=== PATIENT | female | born 1955 | race Caucasian/White ===

== ENCOUNTER 2018-11-17 09:19 | Day surgery (SDC) | payer MEDICARE, OTHER ==
[~2018-11-17 09:19] MED LIST: Lactated Ringers 1,000 ML IV SCH; Sodium Chloride 0.9% 10 ML Syringe FLUSH PRN
[2018-11-17] MEDS ORDERED: Propofol 200 MG/20 ML SDV ONE ×2 (10:49→11:10)
[2018-11-17] MEDS ORDERED: fentaNYL 100 MCG/2 ML SDV ONE (10:49)
[2018-11-17 11:53] VITALS: BP 102/63
--- NOTE | 2018-11-17 18:45 | OR ---
PREOPERATIVE DIAGNOSIS: Positive FIT test. POSTOPERATIVE DIAGNOSIS: Positive FIT test. PROCEDURE PERFORMED: Colonoscopy with polypectomy. INDICATION: The patient is a 63-year-old female who presents for her first colonoscopy at this time. She had a positive FIT test in the office. PROCEDURE IN DETAIL: This was done in the procedure room. She was placed in left lateral position. First, a rectal exam was done, and was normal. Scope was introduced into the rectum and slowly advanced to the rectum, sigmoid, descending, transverse, and ascending colon until the cecum was reached. Upon reaching the cecum, scope was slowly withdrawn looking at all mucosal surfaces on the way out. No mucosal abnormalities, lesions, or polyps were noted until I reached 30 cm where a small polyp was located, was removed by hot forceps, and sent to pathology. Otherwise, she had moderate sigmoid diverticulitis with sigmoid diverticulosis. The remainder of the exam was normal. FINAL DIAGNOSES: 1. Polyp at 30 cm. 2. Sigmoid diverticulosis. PLAN: We will call the patient with pathology when available. BKD: 11/17/2018 11:36:51 MODL: 11/17/2018 18:38:49 /[id number]
== END 2018-11-17 11:35 | disposition home or self-care (01) ==
LOC: VM.SDS 09:19
PROVIDERS: ATTEND Surgery
DX: K57.33 Diverticulitis of large intestine without perforation or abscess with bleeding (principal); D12.5 Benign neoplasm of sigmoid colon; I10 Essential (primary) hypertension; I71.4 Abdominal aortic aneurysm, without rupture; F41.9 Anxiety disorder, unspecified; F17.210 Nicotine dependence, cigarettes, uncomplicated; D22.9 Melanocytic nevi, unspecified; M54.2 Cervicalgia; S72.112G Displaced fracture of greater trochanter of left femur, subsequent encounter for closed fracture with delayed healing; X58.XXXD Exposure to other specified factors, subsequent encounter; Z88.0 Allergy status to penicillin; Z88.1 Allergy status to other antibiotic agents; Z88.8 Allergy status to other drugs, medicaments and biological substances; Z90.710 Acquired absence of both cervix and uterus; Z90.49 Acquired absence of other specified parts of digestive tract; Z79.899 Other long term (current) drug therapy
CPT/HCPCS: 00811; 45384; J2704; J3010; J7120

== ENCOUNTER 2019-04-16 06:50 | Emergency (ER) | payer MEDICARE, OTHER ==
--- NOTE | 2019-04-16 07:19 | EDM.PDOC ---
ED HPI GENERAL MEDICAL PROBLEM - General Stated Complaint: BACK PAIN Time Seen by Provider: 04/16/19 07:19 - History of Present Illness INITIAL COMMENTS - FREE TEXT/NARRATIVE: Pt presents c/o lower back pain. Pt has been moving furniture the last few days. Today comes in by ambulance with 10/10 pain lower labc, denies any trauma. Onset: Today Location: Reports: Back Quality: Reports: Ache Lower Back Pain Score (Numeric/FACES): 5 - Related Data Allergies Allergy/AdvReac Type Severity Reaction Status Date / Time albuterol Allergy Hypertensio Verified 04/16/19 07:33 n azithromycin [From Zithromax] Allergy Other Verified 04/16/19 07:33 cephalexin monohydrate Allergy Nausea Verified 04/16/19 07:33 [From Keflex] codeine Allergy Nausea and Verified 04/16/19 07:33 Vomiting Penicillins Allergy Swelling Verified 04/16/19 07:33 prednisone Allergy Hypertensio Verified 04/16/19 07:33 n Home Meds: Home Meds ALPRAZolam [Alprazolam] 0.25 mg PO DAILY PRN 02/21/14 [History] Aspirin [Adult Low Dose Aspirin EC] 81 mg PO DAILY 11/14/18 [History] Acetaminophen [Tylenol Extra Strength] 500 mg PO Q6H PRN 11/17/18 [History] Past Medical History Cardiovascular History: Reports: Aneurysm, Hypertension Respiratory History: Gastrointestinal History: Reports: Diverticulosis Other Gastrointestinal History: dyspepsia Other Musculoskeletal History: closed nondisplaced fracture of greater trochanter-left femur with delayed healing. cervicalgia. arthralgia Psychiatric History: Reports: Anxiety Other Psychiatric History: smoker - Past Surgical History GI Surgical History: Reports: Cholecystectomy Female Surgical History: Reports: Hysterectomy, Other (See Below) Other Male Surgeries/Procedures: breast biopsy Social & Family History - Family History Other HEENT Family History: sister with brain aneurysm Other Respiratory Family Hisory: sister with hx of lung CA, and liver CA ED ROS GENERAL - Review of Systems Review Of Systems: See Below Constitutional: Reports: No Symptoms HEENT: Reports: No Symptoms Respiratory: Reports: No Symptoms Cardiovascular: Reports: No Symptoms Endocrine: Reports: No Symptoms GI/Abdominal: Reports: No Symptoms : Reports: No Symptoms Musculoskeletal: Reports: Back Pain Skin: Reports: No Symptoms Neurological: Reports: No Symptoms Psychiatric: Reports: No Symptoms Hematologic/Lymphatic: Reports: No Symptoms Immunologic: Reports: No Symptoms ED EXAM,LOWER BACK PAIN/INJURY - Physical Exam Exam: See Below Exam Limited By: No Limitations General Appearance: Alert, WD/WN, No Apparent Distress Eye Exam: Bilateral Eye: Normal Inspection Ears: Normal External Exam, Normal Canal Nose: Normal Inspection, Normal Mucosa Throat/Mouth: Normal Inspection Head: Atraumatic, Normocephalic Neck: Normal Inspection Respiratory/Chest: No Respiratory Distress, Lungs Clear, Normal Breath Sounds Cardiovascular: Normal Peripheral Pulses, Regular Rate, Rhythm GI/Abdominal: Normal Bowel Sounds, Soft, Non-Tender Back Exam: Normal Inspection, Muscle Spasm, Other (Pain lower back est L2-4, no deformity no swelling noted no skin discoloration ) Extremities: Normal Inspection, Normal Range of Motion Neurological: Alert, Normal Mood/Affect Skin Exam: Warm, Dry, Intact Course - Vital Signs Last Recorded V/S: Last Vital Signs Temp 37.2 C 04/16/19 06:45 Pulse 106 H 04/16/19 06:45 Resp 24 H 04/16/19 06:45 BP 143/88 H 04/16/19 06:45 Pulse Ox 91 L 04/16/19 06:45 - Orders/Labs/Meds Orders: Active Orders 24 hr Category Date Time Status Supplemental O2 [Oxygen Therapy, ED] [RC] ASDIRECTED Care 04/16/19 07:48 Ordered Labs: Laboratory Tests 04/16/19 Range/Units 08:13 Sodium 139 (69-191) mmol/L Potassium 4.0 (1.5-9.9) mmol/L Chloride 101 (54-184) mmol/L Carbon Dioxide 27 (21-32) mmol/L Anion Gap 15.0 (10-20) mmol/L BUN 7 (7-18) mg/dL Creatinine 0.6 (0.55-1.02) mg/dL Est Cr Clr Drug Dosing 74.63 mL/min Estimated GFR (MDRD) > 60 Glucose 109 H (74-106) mg/dL Calcium 8.7 (8.5-10.1) mg/dL Meds: Medications Discontinued Medications Generic Name Dose Route Start Last Admin Trade Name Freq PRN Reason Stop Dose Admin Cyclobenzaprine HCl 10 mg 04/16/19 08:49 04/16/19 08:59 Flexeril PO 04/16/19 08:50 10 mg ONETIME ONE Administration Diazepam 3 mg 04/16/19 08:00 04/16/19 07:48 Valium IV 04/16/19 08:01 3 mg ONETIME ONE Administration Departure - Departure Time of Disposition: 09:17 Disposition: Home, Self-Care 01 Condition: Good Clinical Impression: Back muscle spasm - Discharge Information Instructions: Muscle Cramps and Spasms, [id number] Referrals: Kristy Wilson DO [Primary Care Provider] - Additional Instructions: Take cyclobenzaprine three times a day as needed for muscle spasms. !st line Take tramadol every 4 hours as needed for breakthrough pain. - My Orders Last 24 Hours: My Active Orders 04/16/19 07:48 Supplemental O2 [Oxygen Therapy, ED] [RC] ASDIRECTED - Assessment/Plan Last 24 Hours: My Active Orders 04/16/19 07:48 Supplemental O2 [Oxygen Therapy, ED] [RC] ASDIRECTED
[2019-04-16 07:49] VITALS: BP 143/88; PULSE 106
--- NOTE | 2019-04-16 08:33 | CR ---
[id number] RAD/RAD Lumbar Spine 2-3V EXAM: AP AND LATERAL LUMBAR SPINE. INDICATION: Lower back pain. COMPARISON: No previous similar exam is available for comparison. FINDINGS: No fracture or subluxation is seen. There is preservation of height of disc spaces and vertebrae. Mild degenerative changes of the lumbar spine including multilevel facet arthropathy and endplate osteophytosis. The pedicles are intact. There is an abdominal aortic aneurysm measuring up to 5.5 cm. IMPRESSION: 1. NO ACUTE FRACTURE OR SUBLUXATION. 2. MULTILEVEL DEGENERATIVE CHANGES OF THE LUMBAR SPINE. 3. ABDOMINAL AORTIC ANEURYSM MEASURING UP TO 5.5 CM. DEDICATED CTA OF THE ABDOMEN AND PELVIS IS RECOMMENDED FOR FURTHER EVALUATION. George Dixon DO 04/16/19 0830 Thank you for allowing us to participate in the care of your patient.
[2019-04-16 08:34] LABS: CHLORIDE,CL 101 mmol/L (54-184); SODIUM,NA 139 mmol/L (69-191)
[2019-04-16] MEDS ORDERED: Cyclobenzaprine 10 MG Tab PO ONE (08:49)
== END 2019-04-16 09:55 | disposition home or self-care (01) ==
LOC: VM.ED 06:50
DX: M62.830 Muscle spasm of back (principal); I10 Essential (primary) hypertension; F41.9 Anxiety disorder, unspecified; Z79.82 Long term (current) use of aspirin; Z79.899 Other long term (current) drug therapy; Z88.1 Allergy status to other antibiotic agents; Z88.0 Allergy status to penicillin; Z88.5 Allergy status to narcotic agent; Z88.8 Allergy status to other drugs, medicaments and biological substances
CPT/HCPCS: 36415; 72100; 80048; 96374; 99284; A9270; J3360; 99283-GF

== ENCOUNTER 2020-09-17 10:10 | Emergency (ER) | payer MEDICARE, OTHER ==
[2020-09-17 10:30] VITALS: BP 124/94; PULSE 69
--- NOTE | 2020-09-17 10:42 | EDM.PDOC ---
ED HPI GENERAL MEDICAL PROBLEM - General Chief Complaint: General Stated Complaint: malaise/nausea Time Seen by Provider: 09/17/20 10:15 Source of Information: Reports: Patient History Limitations: Reports: No Limitations - History of Present Illness INITIAL COMMENTS - FREE TEXT/NARRATIVE: Dana is a 65 year old female who presents to the ER today with complaints of generalized malaise, body aches and "hot flashes". Has had intermittent nausea without vomiting. States awoke and was drinking coffee when symptoms started. Did have covid vaccine yesterday. No chest pain or shortness of breath. No fevers. Denies any abdominal pain. Legs are achy. Does have mild headache. Has not yet taken any meds to help with symptoms. Onset: Today, Sudden Duration: Hour(s):, Waxing/Waning Location: Reports: Head, Generalized Quality: Reports: Ache Severity: Mild Associated Symptoms: Reports: Headaches, Malaise, Nausea/Vomiting, Weakness. Denies: Confusion, Chest Pain, Cough, Fever/Chills, Loss of Appetite, Shortness of Breath Generalized Pain Score (Numeric/FACES): 5 - Related Data Allergies Allergy/AdvReac Type Severity Reaction Status Date / Time albuterol Allergy Hypertensio Verified 09/17/20 10:24 n azithromycin [From Zithromax] Allergy Other Verified 09/17/20 10:24 cephalexin monohydrate Allergy Nausea Verified 09/17/20 10:24 [From Keflex] codeine Allergy Nausea and Verified 09/17/20 10:24 Vomiting Penicillins Allergy Swelling Verified 09/17/20 10:24 prednisone Allergy Hypertensio Verified 09/17/20 10:24 n Home Meds: Home Meds Aspirin [Adult Low Dose Aspirin EC] 81 mg PO DAILY 11/14/18 [History] Acetaminophen [Tylenol Extra Strength] 500 mg PO Q6H PRN 11/17/18 [History] lisinopriL [Lisinopril] 10 mg PO DAILY 09/17/20 [History] Past Medical History Cardiovascular History: Reports: Aneurysm, Hypertension Respiratory History: Gastrointestinal History: Reports: Diverticulosis Other Gastrointestinal History: dyspepsia Other Musculoskeletal History: closed nondisplaced fracture of greater trochanter-left femur with delayed healing. cervicalgia. arthralgia Psychiatric History: Reports: Anxiety Other Psychiatric History: smoker - Past Surgical History GI Surgical History: Reports: Cholecystectomy Female Surgical History: Reports: Hysterectomy, Other (See Below) Other Female Surgeries/Procedures: breast biopsies Musculoskeletal Surgical History: Reports: Other (See Below) Other Musculoskeletal Surgeries/Procedures:: arthroscopic surgeries to shoulders Social & Family History - Family History Other HEENT Family History: sister with brain aneurysm Other Respiratory Family Hisory: sister with hx of lung CA, and liver CA - Tobacco Use Tobacco Use Status *Q: Current Every Day Tobacco User Years of Tobacco use: 40 Packs/Tins Daily: 1.5 - Alcohol Use Days Per Week of Alcohol Use: 2 Number of Drinks Per Day: 2 Total Drinks Per Week: 4 - Recreational Drug Use Recreational Drug Use: No ED ROS GENERAL - Review of Systems Review Of Systems: See Below Constitutional: Reports: Malaise, Weakness, Fatigue. Denies: Fever, Chills, Diaphoresis, Decreased Appetite HEENT: Reports: Throat Pain. Denies: Ear Pain, Rhinitis, Sinus Problem, Vertigo Respiratory: Denies: Shortness of Breath, Cough Cardiovascular: Denies: Chest Pain, Edema, Lightheadedness Endocrine: Reports: Fatigue GI/Abdominal: Reports: Nausea. Denies: Abdominal Pain, Vomiting : Reports: No Symptoms Musculoskeletal: Reports: Muscle Pain Skin: Reports: No Symptoms Neurological: Reports: Headache ED EXAM, GENERAL - Physical Exam Exam: See Below Exam Limited By: No Limitations General Appearance: Alert, WD/WN, No Apparent Distress Ears: Normal External Exam, Normal TMs Nose: Normal Inspection, Normal Mucosa, No Blood Throat/Mouth: Normal Inspection, Normal Oropharynx Head: Normocephalic Neck: Normal Inspection, Supple, Non-Tender Respiratory/Chest: No Respiratory Distress, Lungs Clear, Normal Breath Sounds Cardiovascular: Regular Rate, Rhythm GI/Abdominal: Normal Bowel Sounds, Soft, Non-Tender Extremities: Normal Inspection, No Pedal Edema Neurological: Alert, Oriented Skin Exam: Warm, Dry Course - Vital Signs Last Recorded V/S: Last Vital Signs Temp 98.2 F 09/17/20 10:15 Pulse 69 09/17/20 10:15 Resp 16 09/17/20 10:15 BP 124/94 H 09/17/20 10:15 Pulse Ox 95 09/17/20 10:15 Departure - Departure Time of Disposition: 10:40 Disposition: Home, Self-Care 01 Condition: Fair Clinical Impression: Vaccine reaction - Discharge Information *PRESCRIPTION DRUG MONITORING PROGRAM REVIEWED*: No *COPY OF PRESCRIPTION DRUG MONITORING REPORT IN PATIENT MEGHANN: No Instructions: COVID-19 Vaccine Information Forms: ED Department Discharge Additional Instructions: 1. Rest 2. Push fluids 3. Tylenol or Benadryl for discomfort 4. Zofran 4 mg every 4-6 hours as needed for nausea 5. Follow up if any persisting concerns. Sepsis Event Note (ED) - Evaluation Sepsis Screening Result: No Definite Risk - Focused Exam Vital Signs: Vital Signs Temp Pulse Resp BP Pulse Ox 09/17/20 10:15 98.2 F 69 16 124/94 H 95
== END 2020-09-17 10:50 | disposition home or self-care (01) ==
LOC: VM.ED 10:10
DX: R53.81 Other malaise (principal); R11.0 Nausea; T88.1XXA Other complications following immunization, not elsewhere classified, initial encounter; I10 Essential (primary) hypertension; F17.200 Nicotine dependence, unspecified, uncomplicated; Z88.1 Allergy status to other antibiotic agents; Z88.5 Allergy status to narcotic agent; Z88.0 Allergy status to penicillin; Z88.8 Allergy status to other drugs, medicaments and biological substances; Z79.82 Long term (current) use of aspirin; Z79.899 Other long term (current) drug therapy
CPT/HCPCS: 99283

== ENCOUNTER 2020-09-20 00:50 | Emergency (ER) | payer MEDICARE, OTHER ==
[2020-09-20 01:08] VITALS: BP 111/83; PULSE 90
[2020-09-20] MEDS: hydrOXYzine HCl 25 MG Tab PO ONE (01:17)
--- NOTE | 2020-09-20 01:18 | EDM.PDOC ---
ED HPI GENERAL MEDICAL PROBLEM - General Chief Complaint: Cardiovascular Problem Stated Complaint: pounding in my chest Time Seen by Provider: 09/20/20 01:06 Source of Information: Reports: Patient - History of Present Illness INITIAL COMMENTS - FREE TEXT/NARRATIVE: Dana is a 65 y/o female who comes to the ER reporting that he heart was pounding as she tried to lay down to sleep tonight. She took a baby ASA when this happened. She had a COVID vaccine on Saturday and since then she has been having "tingling throughout" her body that "starts at her toes and goes up her whole body". She has taken Benadryl, Tylenol, and a nausea medication with little relief. She does admit she is anxious about this and has had a hard time sleeping. She denies any chest pain or SOB. 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, Other (see below) Other Treatments PLODDING MACHINE OPERATOR: Tylenol, zofran, benadryl - Related Data Allergies Allergy/AdvReac Type Severity Reaction Status Date / Time albuterol Allergy Hypertensio Verified 09/17/20 10:24 n azithromycin [From Zithromax] Allergy Other Verified 09/17/20 10:24 cephalexin monohydrate Allergy Nausea Verified 09/17/20 10:24 [From Keflex] codeine Allergy Nausea and Verified 09/17/20 10:24 Vomiting Penicillins Allergy Swelling Verified 09/17/20 10:24 prednisone Allergy Hypertensio Verified 09/17/20 10:24 n Home Meds: Home Meds Aspirin [Adult Low Dose Aspirin EC] 81 mg PO DAILY 11/14/18 [History] Acetaminophen [Tylenol Extra Strength] 500 mg PO Q6H PRN 11/17/18 [History] lisinopriL [Lisinopril] 10 mg PO DAILY 09/17/20 [History] Past Medical History Cardiovascular History: Reports: Aneurysm, Hypertension Respiratory History: Gastrointestinal History: Reports: Diverticulosis Other Gastrointestinal History: dyspepsia Other Musculoskeletal History: closed nondisplaced fracture of greater trochanter-left femur with delayed healing. cervicalgia. arthralgia Psychiatric History: Reports: Anxiety Other Psychiatric History: smoker - Past Surgical History GI Surgical History: Reports: Cholecystectomy Female Surgical History: Reports: Hysterectomy, Other (See Below) Other Female Surgeries/Procedures: breast biopsies Musculoskeletal Surgical History: Reports: Other (See Below) Other Musculoskeletal Surgeries/Procedures:: arthroscopic surgeries to shoulders Social & Family History - Family History Other HEENT Family History: sister with brain aneurysm Other Respiratory Family Hisory: sister with hx of lung CA, and liver CA ED ROS GENERAL - Review of Systems Review Of Systems: See Below Constitutional: Reports: No Symptoms HEENT: Reports: No Symptoms Respiratory: Reports: No Symptoms Cardiovascular: Reports: Palpitations Endocrine: Reports: No Symptoms GI/Abdominal: Reports: No Symptoms : Reports: No Symptoms Musculoskeletal: Reports: No Symptoms Skin: Reports: No Symptoms Neurological: Reports: Tingling Psychiatric: Reports: Anxiety Hematologic/Lymphatic: Reports: No Symptoms Immunologic: Reports: No Symptoms ED EXAM, GENERAL - Physical Exam Exam: See Below General Appearance: Alert, WD/WN, No Apparent Distress (Elderly female.) Eye Exam: Bilateral Eye: PERRL Ears: Hearing Grossly Normal Nose: Normal Inspection, Normal Mucosa Throat/Mouth: Normal Inspection, Normal Lips, Normal Voice Head: Atraumatic, Normocephalic Neck: Normal Inspection Respiratory/Chest: No Respiratory Distress, Lungs Clear, Normal Breath Sounds Cardiovascular: Normal Peripheral Pulses, Regular Rate, Rhythm, No Murmur GI/Abdominal: Normal Bowel Sounds, Soft, Non-Tender (Female) Exam: Deferred Rectal (Female) Exam: Deferred Back Exam: Normal Inspection Extremities: Pedal Edema (1+ bilateral ankle) Neurological: Alert, Oriented, CN II-XII Intact, Normal Cognition Psychiatric: Anxious Skin Exam: Warm, Dry, Intact, Normal Color Lymphatic: No Adenopathy #1 Interpretation EKG Date: 09/20/20 Time: 00:50 Rhythm: NSR Rate (Beats/Min): 82 [place]: Normal P-Wave: Present QRS: Normal ST-T: Normal QT: Normal Course - Vital Signs Text/Narrative:: 0106 The patient was seen by the CORE RESCUER. EKG was done. Her vitals were normal on review. Her exam was negative. She was given Hydroxyzine 100mg po x 1 dose for any reaction and also for anxiety/insomnia. 0145 Patient feeling better and ready to go home to rest. She was given instructions and left the ER in stable condition. Last Recorded V/S: Last Vital Signs Temp 36.2 C 09/20/20 00:50 Pulse 90 09/20/20 00:50 Resp 20 09/20/20 00:50 BP 111/83 09/20/20 00:50 Pulse Ox 93 L 09/20/20 00:50 - Orders/Labs/Meds Meds: Medications Discontinued Medications Generic Name Dose Route Start Last Admin Trade Name Elle PRN Reason Stop Dose Admin Hydroxyzine HCl 100 mg 09/20/20 01:12 09/20/20 01:17 Atarax PO 09/20/20 01:13 100 mg ONETIME ONE Administration Departure - Departure Time of Disposition: 01:41 Disposition: Home, Self-Care 01 Condition: Good Clinical Impression: Anxiety Vaccine reaction Qualifiers: Encounter type: subsequent encounter Qualified Code(s): T50.Z95D - Adverse effect of other vaccines and biological substances, subsequent encounter Instructions: Managing Anxiety, Adult, COVID-19 Vaccine Information Forms: ED Department Discharge Sepsis Event Note (ED) - Evaluation Sepsis Screening Result: No Definite Risk - Focused Exam Vital Signs: Vital Signs Temp Pulse Resp BP Pulse Ox 09/20/20 00:50 36.2 C 90 20 111/83 93 L - Assessment/Plan Assessment:: 1)Anxiety 2)Vaccine Reaction S/P COVID Vaccine Plan: -Continue meds as instructed to use previously including Benadryl and Zofran as needed -Rest as needed -Follow up with your PCP to discuss further symptoms or concerns -Return as needed to the ER
== END 2020-09-20 01:50 | disposition home or self-care (01) ==
LOC: VM.ED 00:50
DX: R20.2 Paresthesia of skin (principal); T88.1XXA Other complications following immunization, not elsewhere classified, initial encounter; F41.9 Anxiety disorder, unspecified; R60.0 Localized edema; I10 Essential (primary) hypertension; F17.200 Nicotine dependence, unspecified, uncomplicated; Z79.82 Long term (current) use of aspirin; Z79.899 Other long term (current) drug therapy; Z88.8 Allergy status to other drugs, medicaments and biological substances; Z88.1 Allergy status to other antibiotic agents; Z88.5 Allergy status to narcotic agent; Z88.0 Allergy status to penicillin
CPT/HCPCS: 93010; 99283-25; 99284; A9270-GY

== ENCOUNTER 2020-11-04 20:46 | Emergency (ER) | payer MEDICARE, OTHER ==
--- NOTE | 2020-11-04 21:19 | EDM.PDOC ---
ED HPI GENERAL MEDICAL PROBLEM - General Stated Complaint: FLUIDS AND SWELLING IN LEGS Time Seen by Provider: 11/04/20 20:59 Source of Information: Reports: Patient - History of Present Illness INITIAL COMMENTS - FREE TEXT/NARRATIVE: Dana is a 65 y/o female who comes to the ER tonight with increased leg swelling. She was seen today at the [facility] and was seen by Lilian Galarza CNP. She did have labs done. She reports that she was kept on her same dose of Lasix 20mg daily and labs were done despite noting that her weight has increased to 114# from 102# over the last few months. She is quite anxious and did take an Alprazolam prior to coming to the ER. She reports only being up and around her house today and she did have her ROSLYN hose on. States she has not been doing any excessive walking. She feels like her legs are swollen up to her thigh region. - Related Data Allergies Allergy/AdvReac Type Severity Reaction Status Date / Time albuterol Allergy Hypertensio Verified 09/17/20 10:24 n azithromycin [From Zithromax] Allergy Other Verified 09/17/20 10:24 cephalexin monohydrate Allergy Nausea Verified 09/17/20 10:24 [From Keflex] codeine Allergy Nausea and Verified 09/17/20 10:24 Vomiting Penicillins Allergy Swelling Verified 09/17/20 10:24 prednisone Allergy Hypertensio Verified 09/17/20 10:24 n Home Meds: Home Meds Aspirin [Adult Low Dose Aspirin EC] 81 mg PO DAILY 11/14/18 [History] Acetaminophen [Tylenol Extra Strength] 500 mg PO Q6H PRN 11/17/18 [History] lisinopriL [Lisinopril] 10 mg PO DAILY 09/17/20 [History] Potassium Chloride 20 meq PO QAM #30 tablet.er 11/04/20 [Rx] Past Medical History Cardiovascular History: Reports: Aneurysm, Hypertension Respiratory History: Gastrointestinal History: Reports: Diverticulosis Other Gastrointestinal History: dyspepsia Other Musculoskeletal History: closed nondisplaced fracture of greater trochanter-left femur with delayed healing. cervicalgia. arthralgia Psychiatric History: Reports: Anxiety Other Psychiatric History: smoker - Past Surgical History GI Surgical History: Reports: Cholecystectomy Female Surgical History: Reports: Hysterectomy, Other (See Below) Other Female Surgeries/Procedures: breast biopsies Musculoskeletal Surgical History: Reports: Other (See Below) Other Musculoskeletal Surgeries/Procedures:: arthroscopic surgeries to shoulders Social & Family History - Family History Other HEENT Family History: sister with brain aneurysm Other Respiratory Family Hisory: sister with hx of lung CA, and liver CA Review of Systems - Review of Systems Review Of Systems: See Below Constitutional: Reports: No Symptoms Eyes: Reports: No Symptoms Ears: Reports: No Symptoms Nose: Reports: No Symptoms Mouth/Throat: Reports: No Symptoms Respiratory: Reports: No Symptoms Cardiovascular: Reports: Edema GI/Abdominal: Reports: No Symptoms Genitourinary: Reports: No Symptoms Musculoskeletal: Reports: No Symptoms Skin: Reports: No Symptoms Neurological: Reports: No Symptoms Psychiatric: Reports: No Symptoms ED EXAM, GENERAL - Physical Exam Exam: See Below Exam Limited By: No Limitations General Appearance: Alert, WD/WN, No Apparent Distress (Elderly female) Eye Exam: Bilateral Eye: PERRL Ears: Hearing Grossly Normal Nose: Normal Inspection, Normal Mucosa Throat/Mouth: Normal Inspection, Normal Teeth, Normal Voice Head: Atraumatic, Normocephalic Neck: Normal Inspection, Supple Respiratory/Chest: No Respiratory Distress, Lungs Clear, Chest Non-Tender Cardiovascular: Normal Peripheral Pulses, Regular Rate, Rhythm GI/Abdominal: Normal Bowel Sounds, Soft, Non-Tender (Female) Exam: Deferred Rectal (Female) Exam: Deferred Extremities: Pedal Edema (bilataeral pedal/ankle edema 2+, mild non-pitting edema noted in thighs) Neurological: Alert, Oriented, CN II-XII Intact, No Motor/Sensory Deficits Psychiatric: Normal Affect, Normal Mood Skin Exam: Warm, Dry, Intact, Normal Color Course - Vital Signs Text/Narrative:: 2058 The patient was seen by the IP LITIGATION PARALEGAL. Labs done. 2149 Lab reviewed. Note [id number]. HHM=Sc=887, K=3.8, GFR=>60. UA SG=1.010. Suspect patient in Heart Failure if she is not already diagnosed. Will have her increase her Lasix to 20mg BID starting in the AM so she is not up all night voiding and then add a dose of Potassium 20 mEq daily. We will have her see her PCP to discuss meds changes and follow up her labs early next week. Patient and her were in agreement to the plan, questions were answered and she was given written discharge instructions and left the ER in stable condition. Last Recorded V/S: Last Vital Signs Temp 36.6 C 11/04/20 20:46 Pulse 79 11/04/20 20:46 Resp 22 H 11/04/20 20:46 BP 138/84 11/04/20 20:46 Pulse Ox 87 L 11/04/20 20:46 - Orders/Labs/Meds Labs: Laboratory Tests 11/04/20 11/04/20 Range/Units 21:10 21:33 Sodium 135 L (136-145) mmol/L Potassium 3.8 (3.5-5.1) mmol/L Chloride 97 L (98-107) mmol/L Carbon Dioxide 31 (21-32) mmol/L Anion Gap 10.8 (5-15) mmol/L BUN 13 (7-18) mg/dL Creatinine 0.6 (0.55-1.02) mg/dL Est Cr Clr Drug Dosing 74.27 mL/min Estimated GFR (MDRD) > 60 Glucose 91 (70-99) mg/dL Calcium 8.2 L (8.5-10.1) mg/dL NT-Pro-B Natriuret Pep 3919 H (<=125) pg/mL Urine Color Yellow (YELLOW) Urine Appearance Slightly cloudy H (CLEAR) Urine pH 6.0 (5.0-8.0) Ur Specific [place] 1.010 Urine Protein Negative (NEGATIVE) mg/dL Urine Glucose (UA) Negative (NEGATIVE) mg/dL Urine Ketones Negative (NEGATIVE) mg/dL Urine Occult Blood Trace-intact H (NEGATIVE) Urine Nitrite Negative (NEGATIVE) Urine Bilirubin Negative (NEGATIVE) Urine Urobilinogen 0.2 (0.2) EU/dL Ur Leukocyte Esterase Trace H (NEGATIVE) Urine RBC 5-10 H (NOT SEEN) /HPF Urine WBC 0-5 (NOT SEEN) /HPF Ur Squamous Epith Cells Occasional H (NOT SEEN) /HPF Amorphous Sediment Occasional Urine Bacteria Rare (NOT SEEN) /HPF Urine Mucus Occasional H (NOT SEEN) /LPF Departure - Departure Time of Disposition: 21:56 Disposition: Home, Self-Care 01 Clinical Impression: Bilateral lower extremity edema - Discharge Information *PRESCRIPTION DRUG MONITORING PROGRAM REVIEWED*: Not Applicable *COPY OF PRESCRIPTION DRUG MONITORING REPORT IN PATIENT MEGHANN: Not Applicable Prescriptions: Potassium Chloride 20 meq PO QAM #30 tablet.er Instructions: Heart Failure, Diagnosis, [id number] Referrals: Kristy Wilson DO [Primary Care Provider] - Additional Instructions: - Sepsis Event Note (ED) - Focused Exam Vital Signs: Vital Signs Temp Pulse Resp BP Pulse Ox 11/04/20 20:46 36.6 C 79 22 H 138/84 87 L - Assessment/Plan Assessment:: 1)Bilateral Lower Extremity Edema Plan: Increased your Lasix (Furosemide) to 20mg 2x a day to help with your increased fluid -Potassium Chloride 20 mEqoral daily when you increase your Lasix #30(Rx) -Please discuss your labs further with your PCP next week and advise her of the changes we made in your meds tonight in the ER, -Weight yourself daily to monitor your fluid. Record this and take it your clinic appt. -Make an appt to see you PCP next week -Return to the ER as needed for any concerns
[2020-11-04 21:29] VITALS: BP 138/84; PULSE 79
[2020-11-04 21:38] LABS: CHLORIDE,CL 97 mmol/L (98-107); SODIUM,NA 135 mmol/L (136-145)
[2020-11-04 21:39] LABS: ANION GAP 10.8 mmol/L (5-15)
== END 2020-11-04 22:08 | disposition home or self-care (01) ==
LOC: VM.ED 20:46
DX: R60.0 Localized edema (principal); I10 Essential (primary) hypertension; F17.200 Nicotine dependence, unspecified, uncomplicated; Z88.8 Allergy status to other drugs, medicaments and biological substances; Z88.1 Allergy status to other antibiotic agents; Z88.5 Allergy status to narcotic agent; Z88.0 Allergy status to penicillin; Z79.899 Other long term (current) drug therapy
CPT/HCPCS: 36415; 80048; 81001; 83880; 99283

== ENCOUNTER 2021-02-05 12:58 | Emergency (ER) | payer MEDICARE, OTHER ==
--- NOTE | 2021-02-05 14:36 | EDM.PDOC ---
ED HPI GENERAL MEDICAL PROBLEM - General Chief Complaint: General Stated Complaint: PAIN IN LEFT LEG TIGHTNESS IN THE CHEST Time Seen by Provider: 02/05/21 14:00 Source of Information: Reports: Patient History Limitations: Reports: No Limitations - History of Present Illness INITIAL COMMENTS - FREE TEXT/NARRATIVE: Patient comes into the emergency department With complaints of right lower leg cramping sensation last night. Patient comes into the emergency department for the above reason due to a recent Covid vaccine and is concerned that she could have a blood clot. She states that she had leg cramping sensation behind the knee last evening and states that she did not want to wait till tomorrow. She denies having any increased pain and discomfort today. She is able to ambulate and CMS is been normal. Patient denies any redness, swelling, decrease in pulse sensation, or severe abnormal pain on her lower leg compared to the other extremity. Patient also denies any chest pain, short of breath, dizziness, history of DVT, nausea, vomiting, or genitourinary concerns. Onset: Sudden - Related Data Allergies Allergy/AdvReac Type Severity Reaction Status Date / Time albuterol Allergy Hypertensio Verified 09/17/20 10:24 n azithromycin [From Zithromax] Allergy Other Verified 09/17/20 10:24 cephalexin monohydrate Allergy Nausea Verified 09/17/20 10:24 [From Keflex] codeine Allergy Nausea and Verified 09/17/20 10:24 Vomiting Penicillins Allergy Swelling Verified 09/17/20 10:24 prednisone Allergy Hypertensio Verified 09/17/20 10:24 n Home Meds: Home Meds Aspirin [Adult Low Dose Aspirin EC] 81 mg PO DAILY 11/14/18 [History] Acetaminophen [Tylenol Extra Strength] 500 mg PO Q6H PRN 11/17/18 [History] lisinopriL [Lisinopril] 10 mg PO DAILY 09/17/20 [History] Potassium Chloride 20 meq PO QAM #30 tablet.er 11/04/20 [Rx] Past Medical History Cardiovascular History: Reports: Aneurysm, Hypertension Respiratory History: Gastrointestinal History: Reports: Diverticulosis Other Gastrointestinal History: dyspepsia Other Musculoskeletal History: closed nondisplaced fracture of greater trochanter-left femur with delayed healing. cervicalgia. arthralgia Psychiatric History: Reports: Anxiety Other Psychiatric History: smoker - Past Surgical History GI Surgical History: Reports: Cholecystectomy Female Surgical History: Reports: Hysterectomy, Other (See Below) Other Female Surgeries/Procedures: breast biopsies Musculoskeletal Surgical History: Reports: Other (See Below) Other Musculoskeletal Surgeries/Procedures:: arthroscopic surgeries to shoulders Social & Family History - Family History Family Medical History: No Pertinent Family History Other HEENT Family History: sister with brain aneurysm Other Respiratory Family Hisory: sister with hx of lung CA, and liver CA ED ROS GENERAL - Review of Systems Review Of Systems: Comprehensive ROS is negative, except as noted in HPI. Constitutional: Reports: No Symptoms HEENT: Reports: No Symptoms Respiratory: Reports: No Symptoms Cardiovascular: Reports: No Symptoms Endocrine: Reports: No Symptoms GI/Abdominal: Reports: No Symptoms : Reports: No Symptoms Musculoskeletal: Reports: Leg Pain Skin: Reports: No Symptoms Neurological: Reports: No Symptoms Psychiatric: Reports: No Symptoms Hematologic/Lymphatic: Reports: No Symptoms Immunologic: Reports: No Symptoms ED EXAM, GENERAL - Physical Exam Exam: See Below Exam Limited By: No Limitations General Appearance: Alert, WD/WN, No Apparent Distress Eye Exam: Bilateral Eye: EOMI, PERRL Respiratory/Chest: No Respiratory Distress, No Accessory Muscle Use, Chest Non- Tender Cardiovascular: Normal Peripheral Pulses, Regular Rate, Rhythm, No Edema Peripheral Pulses: 4+: Popliteal (R), Posterior Tibial (L), Posterior Tibial (R), Dorsalis Pedis (L), Dorsalis Pedis (R) Extremities: Normal Inspection, Normal Range of Motion, Non-Tender, No Pedal Edema, Normal Capillary Refill, Other (no swelling, tenderness, increased warmth, or girth size differences. CMS and ROM intact ) Neurological: Alert, Oriented, Normal Gait Psychiatric: Normal Affect, Normal Mood Skin Exam: Warm, Dry, Intact, Normal Color Departure - Departure Time of Disposition: 14:30 Disposition: Home, Self-Care 01 Condition: Good Clinical Impression: Leg cramp - Discharge Information *PRESCRIPTION DRUG MONITORING PROGRAM REVIEWED*: Not Applicable *COPY OF PRESCRIPTION DRUG MONITORING REPORT IN PATIENT MEGHANN: Not Applicable Instructions: Muscle Cramps and Spasms, [id number] Forms: ED Department Discharge Additional Instructions: 1. rest 2. increase your water intake 3. Continue all at home medications 4. Activity and diet as tolerated 5. Can take over the counter Tylenol for any pain or discomfort 6. Follow up with PCP if symptoms continue, return, or progress 7. Call with any questions or concerns 8. take a total of 4 baby aspirins today and tomorrow and call the clinic tomorrow and schedule an appointment for further evaluation and ultrasound of that foot - Assessment/Plan Assessment:: 1. leg cramp 2. fluid restriction 3. Recent covid-19 vaccine Plan: 1. Negative assessment- Leg girth and measurements equal. no changes in pulse rates 2. Patient instructed to take 324mg ASA today and tomorrow and follow up tomorrow in clinic 3. Patient and nursing staff was updated regarding the plan of care 4. Education provided the patient regarding activity, diet, rest, [id number] medication modalities, and follow-up care was provided 5. Patient and family are agreeable to the above plan of care 6. All questions and concerns were addressed with the patient and family prior to discharge
[2021-02-05 20:55] VITALS: BP 126/73; PULSE 87
== END 2021-02-05 14:40 | disposition home or self-care (01) ==
LOC: VM.ED 12:58
DX: R25.2 Cramp and spasm (principal); I10 Essential (primary) hypertension; F17.200 Nicotine dependence, unspecified, uncomplicated; Z88.0 Allergy status to penicillin; Z88.8 Allergy status to other drugs, medicaments and biological substances; Z88.1 Allergy status to other antibiotic agents; Z88.5 Allergy status to narcotic agent; Z79.82 Long term (current) use of aspirin; Z79.899 Other long term (current) drug therapy
CPT/HCPCS: 99283; 99284

== ENCOUNTER 2021-02-16 20:43 | Emergency (ER) | payer MEDICARE, OTHER ==
[2021-02-16] MEDS ORDERED: Sodium Chloride 0.9% 10 ML Syringe FLUSH PRN (20:53)
--- NOTE | 2021-02-16 21:27 | EDM.PDOC ---
ED HPI GENERAL MEDICAL PROBLEM - General Stated Complaint: STROKE CODE Time Seen by Provider: 02/16/21 20:43 Source of Information: Reports: Patient, EMS, Family History Limitations: Reports: Altered Mental Status - History of Present Illness INITIAL COMMENTS - FREE TEXT/NARRATIVE: Patient comes emergency department today from home by ambulance with concerns of an altered level of consciousness. According to the family patient has been struggling with vertigo dizziness inability to eat nausea and vomiting since she received her Covid vaccine in September. She has been struggling with persistent headaches as well as vertigo type symptoms. She has been losing weight. She has been struggling with this for the past many months. She has no history of seizures. She does have a history of COPD as well as a AAA repair. She also has a history of congestive heart failure. She had an MRI completed yesterday which per family report was negative which was ordered by neurology due to her chronic vertigo. Today she was with her chronic complaints to go generalized weakness. Her came upstairs to find her in the chair shaking and unresponsive. Unsure if she had a fall. Ambulance was summoned. Upon EMS arrival the patient was quite clenched and extended and stiff. She was not verbal. She was maintaining her airway on her own. Blood sugar was 155 in route. A stroke code was activated prior to the patient's arrival. Due to the concerns of a possibility of a stroke. Upon arrival the patient was taken immediately to the CT scanner. She was somewhat drowsy slow to respond in the CT scanner. Once we returned to the emergency department she was alert appropriate and following commands. The only complaint that she has is that she has chronic back pain. She also complains of her chronic vertigo. As well as a headache nothing new. No diplopia. No blurred vision. No chest pain no nausea no shortness of breath. No cough or congestion. She does complain of chills. No fever. No abdominal pain no nausea no vomiting. No hematuria dysuria or urinary frequency. No black or tarry stools. Patient has been losing about a half a pound a day and has not been eating. - Related Data Allergies Allergy/AdvReac Type Severity Reaction Status Date / Time albuterol Allergy Hypertensio Verified 02/05/21 20:45 n azithromycin [From Zithromax] Allergy Other Verified 02/05/21 20:45 cephalexin monohydrate Allergy Nausea Verified 02/05/21 20:45 [From Keflex] codeine Allergy Nausea and Verified 02/05/21 20:45 Vomiting Penicillins Allergy Swelling Verified 02/05/21 20:45 prednisone Allergy Hypertensio Verified 02/05/21 20:45 n Home Meds: Home Meds Aspirin [Adult Low Dose Aspirin EC] 81 mg PO DAILY 11/14/18 [History] Acetaminophen [Tylenol Extra Strength] 500 mg PO Q6H PRN 11/17/18 [History] lisinopriL [Lisinopril] 10 mg PO DAILY 09/17/20 [History] Potassium Chloride 20 meq PO QAM #30 tablet.er 11/04/20 [Rx] Verapamil HCl 40 mg PO DAILY 02/16/21 [History] Past Medical History Cardiovascular History: Reports: Aneurysm, Heart Failure, Hypertension Respiratory History: Reports: COPD Gastrointestinal History: Reports: Diverticulosis Other Gastrointestinal History: dyspepsia Other Musculoskeletal History: closed nondisplaced fracture of greater trochanter-left femur with delayed healing. cervicalgia. arthralgia Psychiatric History: Reports: Anxiety Other Psychiatric History: smoker - Infectious Disease History Infectious Disease History: Reports: None - Past Surgical History GI Surgical History: Reports: Cholecystectomy Female Surgical History: Reports: Hysterectomy, Other (See Below) Other Female Surgeries/Procedures: breast biopsies Musculoskeletal Surgical History: Reports: Other (See Below) Other Musculoskeletal Surgeries/Procedures:: arthroscopic surgeries to shoulders Social & Family History - Family History Family Medical History: No Pertinent Family History Other HEENT Family History: sister with brain aneurysm Other Respiratory Family Hisory: sister with hx of lung CA, and liver CA ED ROS GENERAL - Review of Systems Review Of Systems: Comprehensive ROS is negative, except as noted in HPI. - Physical Exam Exam: See Below Text/Narrative:: Initially this patient upon presentation was slow to respond she was moving her extremities spontaneously and appeared to be postictal. After the patient returned from the CT scanner she was alert appropriate moving all of her extremities appropriately. Exam Limited By: No Limitations General Appearance: Alert, WD/WN, No Apparent Distress Eye Exam: Bilateral Eye: EOMI, PERRL Ears: Normal External Exam, Normal TMs Nose: Normal Inspection, Normal Mucosa, No Blood Throat/Mouth: Normal Voice, No Airway Compromise. No: Normal Inspection (She has a small laceration on the tongue that is not bleeding. The oral cavity is very dry and her lips are dry and cracked. ) Head Exam: Atraumatic, Normocephalic Neck: Normal Inspection, Supple, Non-Tender, Full Range of Motion. No: Tender Lateral, Tender Midline Respiratory/Chest: No Respiratory Distress, Lungs Clear, No Accessory Muscle Use, Chest Non-Tender, Decreased Breath Sounds Cardiovascular: Normal Peripheral Pulses, Regular Rate, Rhythm, No Murmur GI/Abdominal: Normal Bowel Sounds, Soft, Non-Tender (Female) Exam: Deferred, Other (not incontinent upon arrival) Rectal (Female) Exam: Deferred Neuro Exam (Abbreviated): Alert, Oriented, CN II-XII Intact, Normal Cognition, Normal Gait, Normal Reflexes, No Motor/Sensory Deficits (See other), Other (NIH of one. Her left leg does drift to the bed although she has chronic weakness and back pain that she refuses to try to hold her leg up. Her back pain is chronic) Back Exam: Normal Inspection, Full Range of Motion. No: Paraspinal Tenderness, Vertebral Tenderness Extremities: Normal Inspection, Normal Range of Motion, Non-Tender, Normal Capillary Refill Psychiatric: Flat Affect Skin Exam: Warm, Dry, Intact, Normal Color, No Rash Course - Vital Signs Last Recorded V/S: Last Vital Signs Temp Pulse Resp BP Pulse Ox 85 L 02/16/21 21:05 - Orders/Labs/Meds Orders: Active Orders 24 hr Category Date Time Status Chest 1V Frontal [CR] Stat Exams 02/16/21 21:13 Stop Req Head wo Cont [CT] Stat Exams 02/16/21 20:53 Stop Req DRUG SCREEN, URINE [URCHEM] Stat Lab 02/16/21 20:54 Ordered PROLACTIN [REF] Stat Lab 02/16/21 21:10 Received UA RFX NISHA AND CULT IF INDIC [URIN] Stat Lab 02/16/21 20:54 Ordered Peripheral IV Insertion Adult [OM.PC] Stat Oth 02/16/21 20:53 Ordered Labs: Laboratory Tests 02/16/21 02/16/21 02/16/21 Range/Units 21:10 21:10 21:10 WBC 9.7 (4.0-10.0) x10^3/uL RBC 5.50 (4.00-5.50) x10^6/uL Hgb 17.4 H (12.0-16.0) g/dL Hct 48.3 H (33.0-47.0) % MCV 87.8 D (78.0-93.0) fL MCH 31.6 (26.0-32.0) pg MCHC 36.0 (32.0-36.0) g/dL RDW Coeff of Tania 15.5 H (10.0-15.0) % Plt Count 308 (130-400) x10^3/uL Add Manual Diff Yes Neutrophils % (Manual) 84 H (50-80) % Band Neutrophils % 1 (0-6) % Lymphocytes % (Manual) 5 L (25-50) % Monocytes % (Manual) 10 (2-11) % Platelet Estimate Adequate Anisocytosis 1+ slight H PT 10.6 (9.9-12.5) SEC INR 1.0 L (2.0-3.5) APTT 22.7 L (25.6-32.8) SEC Sodium 130 L (136-145) mmol/L Potassium 3.6 (3.5-5.1) mmol/L Chloride 91 L (98-107) mmol/L Carbon Dioxide 31 (21-32) mmol/L Anion Gap 11.6 (5-15) mmol/L BUN 14 (7-18) mg/dL Creatinine 0.7 (0.55-1.02) mg/dL Est Cr Clr Drug Dosing TNP Estimated GFR (MDRD) > 60 Glucose 140 H (70-99) mg/dL Lactic Acid (0.4-2.0) mmol/L Calcium 9.0 (8.5-10.1) mg/dL Corrected Calcium 9.2 (8.5-10.1) mg/dL Magnesium (1.8-2.4) mg/dL Total Bilirubin 0.6 (0.2-1.0) mg/dL AST 22 (15-37) U/L ALT 24 (14-59) U/L Alkaline Phosphatase 94 (46-116) U/L Creatine Kinase (26-192) U/L Troponin I High Sens 8 (<=51) ng/L C-Reactive Protein < 0.2 (<=0.9) mg/dL Total Protein 7.3 (6.4-8.2) g/dL Albumin 3.8 (3.4-5.0) g/dL Globulin 3.5 Albumin/Globulin Ratio 1.09 Ethyl Alcohol (0-3) mg/dL 02/16/21 02/16/21 02/16/21 Range/Units 21:10 21:10 21:10 WBC (4.0-10.0) x10^3/uL RBC (4.00-5.50) x10^6/uL Hgb (12.0-16.0) g/dL Hct (33.0-47.0) % MCV (78.0-93.0) fL MCH (26.0-32.0) pg MCHC (32.0-36.0) g/dL RDW Coeff of Tania (10.0-15.0) % Plt Count (130-400) x10^3/uL Add Manual Diff Neutrophils % (Manual) (50-80) % Band Neutrophils % (0-6) % Lymphocytes % (Manual) (25-50) % Monocytes % (Manual) (2-11) % Platelet Estimate Anisocytosis PT (9.9-12.5) SEC INR (2.0-3.5) APTT (25.6-32.8) SEC Sodium (136-145) mmol/L Potassium (3.5-5.1) mmol/L Chloride (98-107) mmol/L Carbon Dioxide (21-32) mmol/L Anion Gap (5-15) mmol/L BUN (7-18) mg/dL Creatinine (0.55-1.02) mg/dL Est Cr Clr Drug Dosing Estimated GFR (MDRD) Glucose (70-99) mg/dL Lactic Acid 2.4 H* (0.4-2.0) mmol/L Calcium (8.5-10.1) mg/dL Corrected Calcium (8.5-10.1) mg/dL Magnesium (1.8-2.4) mg/dL Total Bilirubin (0.2-1.0) mg/dL AST (15-37) U/L ALT (14-59) U/L Alkaline Phosphatase (46-116) U/L Creatine Kinase 48 (26-192) U/L Troponin I High Sens (<=51) ng/L C-Reactive Protein (<=0.9) mg/dL Total Protein (6.4-8.2) g/dL Albumin (3.4-5.0) g/dL Globulin Albumin/Globulin Ratio Ethyl Alcohol < 3 (0-3) mg/dL 02/16/21 Range/Units 21:10 WBC (4.0-10.0) x10^3/uL RBC (4.00-5.50) x10^6/uL Hgb (12.0-16.0) g/dL Hct (33.0-47.0) % MCV (78.0-93.0) fL MCH (26.0-32.0) pg MCHC (32.0-36.0) g/dL RDW Coeff of Tania (10.0-15.0) % Plt Count (130-400) x10^3/uL Add Manual Diff Neutrophils % (Manual) (50-80) % Band Neutrophils % (0-6) % Lymphocytes % (Manual) (25-50) % Monocytes % (Manual) (2-11) % Platelet Estimate Anisocytosis PT (9.9-12.5) SEC INR (2.0-3.5) APTT (25.6-32.8) SEC Sodium (136-145) mmol/L Potassium (3.5-5.1) mmol/L Chloride (98-107) mmol/L Carbon Dioxide (21-32) mmol/L Anion Gap (5-15) mmol/L BUN (7-18) mg/dL Creatinine (0.55-1.02) mg/dL Est Cr Clr Drug Dosing Estimated GFR (MDRD) Glucose (70-99) mg/dL Lactic Acid (0.4-2.0) mmol/L Calcium (8.5-10.1) mg/dL Corrected Calcium (8.5-10.1) mg/dL Magnesium 1.6 L (1.8-2.4) mg/dL Total Bilirubin (0.2-1.0) mg/dL AST (15-37) U/L ALT (14-59) U/L Alkaline Phosphatase (46-116) U/L Creatine Kinase (26-192) U/L Troponin I High Sens (<=51) ng/L C-Reactive Protein (<=0.9) mg/dL Total Protein (6.4-8.2) g/dL Albumin (3.4-5.0) g/dL Globulin Albumin/Globulin Ratio Ethyl Alcohol (0-3) mg/dL Meds: Medications Discontinued Medications Generic Name Dose Route Start Last Admin Trade Name Elle PRN Reason Stop Dose Admin Acetaminophen 500 mg 02/16/21 21:41 02/16/21 21:45 Acetaminophen 500 Mg Tab PO 02/16/21 21:42 500 mg ONETIME ONE Administration Sodium Chloride 1,000 mls @ 100 mls/hr 02/16/21 21:45 02/16/21 21:45 Normal Saline IV 100 mls/hr ASDIRECTED AVE Administration Sodium Chloride 10 ml 02/16/21 20:53 Sodium Chloride 0.9% 10 Ml Syringe FLUSH ASDIRECTED PRN Keep Vein Open - Re-Assessments/Exams Free Text/Narrative Re-Assessment/Exam: 02/16/21 A stroke code was activated prior to the patient's arrival and the stroke team was present on the patient's arrival. She was taken emergently to the CT scanner. Initially the CT scan reviewed extemporaneously by myself. She does not have any signs of intracranial bleeding. Further examination in the CT scanner this is most likely a seizure with her postictal. And I do not feel that she needs a CTA head and neck as she just had an MRI and complete neurology work-up yesterday. Again the patient initially was somewhat postictal but shortly after arrival is alert appropriate moving all of her extremities. EKG was completed. Labs are drawn. Her laboratory evaluation is rather unremarkable. She has a mild elevation of her lactic acid. She is not incontinent of urine. I did review her MRI that was completed and essentially yesterday which was also unremarkable. The patient does have some chronic polycythemia which could be related to her COPD and/or decreased fluid intake. I did call and speak with the neurologist on-call at [facility] in [place]. HPI ER COURSE findings and concerns were relayed to her verbally at this time. NO concern for stroke. Guidance was given from neurology to instruct the patient not to drive. No initiation of antiepileptic medications and to get an outpatient EEG. Repeat neurological exam is unchanged other than this patient is alert appropriate and she is without complaints now. I am unsure of what caused her seizure. Although she was not incontinent of urine she did bite her tongue and the reported shaking in the postictal presentation is really concerning for first-time seizure. At this time guidance from neurology we will discharge her home. Close follow-up with primary care to contact tomorrow and get an EEG scheduled. Any new or worse symptoms she is to recheck. The patient and her family are very comfortable with this plan and her questions are answered. 02/17/21 06:22 the patients sats were initially 85% but upon discharge was 92% on room air. Departure - Departure Time of Disposition: 22:23 Disposition: Home, Self-Care 01 Clinical Impression: Seizure - Discharge Information *PRESCRIPTION DRUG MONITORING PROGRAM REVIEWED*: Not Applicable *COPY OF PRESCRIPTION DRUG MONITORING REPORT IN PATIENT MEGHANN: Not Applicable Instructions: Seizure, Adult, [id number] Referrals: Kristy Wilson, [Primary Care Provider] - Additional Instructions: Contact your clinic in the morning and see if you can get an EEG scheduled for the first time seizure tonight. No driving until after you get your results from your EEG. Continue with previous therapies. See if you can get your results of your echo from your AAA repair. Return to the ED if new or worsening symptoms Follow up with PCP early next week. See if they can get your prolactin results from here as well. Sepsis Event Note (ED) - Focused Exam Vital Signs: Vital Signs Pulse Ox 02/16/21 21:05 85 L - My Orders Last 24 Hours: My Active Orders 02/16/21 20:53 Head wo Cont [CT] Stat Peripheral IV Insertion Adult [OM.PC] Stat 02/16/21 20:54 DRUG SCREEN, URINE [URCHEM] Stat UA RFX NISHA AND CULT IF INDIC [URIN] Stat 02/16/21 21:10 PROLACTIN [REF] Stat 02/16/21 21:13 Chest 1V Frontal [CR] Stat - Assessment/Plan Last 24 Hours: My Active Orders 02/16/21 20:53 Head wo Cont [CT] Stat Peripheral IV Insertion Adult [OM.PC] Stat 02/16/21 20:54 DRUG SCREEN, URINE [URCHEM] Stat UA RFX NISHA AND CULT IF INDIC [URIN] Stat 02/16/21 21:10 PROLACTIN [REF] Stat 02/16/21 21:13 Chest 1V Frontal [CR] Stat
[2021-02-16 21:39] LABS: CHLORIDE,CL 91 mmol/L (98-107); SODIUM,NA 130 mmol/L (136-145)
[2021-02-16 21:40] LABS: ANION GAP 11.6 mmol/L (5-15)
[2021-02-16 21:41] LABS: PTT,PARTIAL THROMBOPLSTIN TIME 22.7 SEC (25.6-32.8)
[2021-02-16] MEDS: Sodium Chloride 0.9% 1,000 ML IV SCH (21:45)
[2021-02-16] MEDS: Acetaminophen 500 MG Tab PO ONE (21:45)
--- NOTE | 2021-02-17 07:01 | CT ---
[id number] CT/CT Head WO IV EXAM: CT Head WO IV CLINICAL DATA: SEIZURE COMPARISON: No previous similar exam is available for comparison. FINDINGS: Involutional changes are advanced for age There is no mass or mass effect. There is no hemorrhage or hydrocephalus. There are no extra-axial fluid collections. There are no sites of abnormal attenuation. IMPRESSION: NO PLAIN CT EVIDENCE OF ACUTE INTRACRANIAL PROCESS. Tyrese Ng MD 02/17/21 0700 Thank you for allowing us to participate in the care of your patient.
--- NOTE | 2021-02-17 08:04 | CR ---
[id number] RAD/RAD Chest PA or AP 1V EXAM: RAD Chest PA or AP 1V INDICATION: HYPOXIA. COMPARISON: None. DISCUSSION: Cardiomediastinal silhouette is normal in size and contour. Right basilar pulmonary infiltrate. Pulmonary hyperinflation. Bibasilar subsegmental atelectasis and/or scarring. IMPRESSION: Right basilar pulmonary infiltrate. George Dixon DO 02/17/21 0803 Thank you for allowing us to participate in the care of your patient.
== END 2021-02-16 23:25 | disposition home or self-care (01) ==
LOC: VM.ED 20:43
DX: R56.9 Unspecified convulsions (principal); J44.9 Chronic obstructive pulmonary disease, unspecified; Z87.891 Personal history of nicotine dependence; I11.0 Hypertensive heart disease with heart failure; I50.9 Heart failure, unspecified; Z88.1 Allergy status to other antibiotic agents; Z88.5 Allergy status to narcotic agent; Z88.0 Allergy status to penicillin; Z88.8 Allergy status to other drugs, medicaments and biological substances; Z79.82 Long term (current) use of aspirin; Z79.899 Other long term (current) drug therapy
CPT/HCPCS: 36415; 70450; 71045; 80053; 80307; 82550; 83605; 83735; 84146; 84484; 85025; 85610; 85730; 86140; 93005; 94760; 99284; 99285; A9270; J7030

== ENCOUNTER 2021-02-22 12:53 | Emergency (ER) | payer MEDICARE, OTHER ==
--- NOTE | 2021-02-22 14:03 | EDM.PDOC ---
ED HPI GENERAL MEDICAL PROBLEM - General Stated Complaint: left upper abdominal pain/hernia Time Seen by Provider: 02/22/21 13:28 Source of Information: Reports: Patient History Limitations: Reports: No Limitations - History of Present Illness INITIAL COMMENTS - FREE TEXT/NARRATIVE: Sophy presents to the ED for pain in her documented " hernia " area. She states she has a " lump" that comes and goes in the left upper abdomen by her ribs intermittantly. Today while she was showering at 9 am it became significantly worse and she tried to rest and sit to make it better. She was supposed to go to [facility] for a therapy appointment but the pain did not subside so came here instead. States it is not a new pain, has problems from time to time. HAs not taken anything for it and declines medications due to side effects. Has been struggling quite a bit recently with weight loss, vertigo, seizures, and seeing multiple providers for many different ailments. These are stable, mainly here today for the LUQ pain and " Hernia". Duration: Intermittent, Recurring Location: Reports: Abdomen Quality: Reports: Same as Previous Episode Severity: Moderate Improves with: Reports: None Worsens with: Reports: Movement - Related Data Allergies Allergy/AdvReac Type Severity Reaction Status Date / Time albuterol Allergy Hypertensio Verified 02/05/21 20:45 n azithromycin [From Zithromax] Allergy Other Verified 02/05/21 20:45 cephalexin monohydrate Allergy Nausea Verified 02/05/21 20:45 [From Keflex] codeine Allergy Nausea and Verified 02/05/21 20:45 Vomiting Penicillins Allergy Swelling Verified 02/05/21 20:45 prednisone Allergy Hypertensio Verified 02/05/21 20:45 n Home Meds: Home Meds Aspirin [Adult Low Dose Aspirin EC] 81 mg PO DAILY 11/14/18 [History] Acetaminophen [Tylenol Extra Strength] 500 mg PO Q6H PRN 11/17/18 [History] lisinopriL [Lisinopril] 10 mg PO DAILY 09/17/20 [History] Potassium Chloride 20 meq PO QAM #30 tablet.er 11/04/20 [Rx] Verapamil HCl 40 mg PO DAILY 02/16/21 [History] Past Medical History Cardiovascular History: Reports: Aneurysm, Heart Failure, Hypertension Respiratory History: Reports: COPD Gastrointestinal History: Reports: Diverticulosis Other Gastrointestinal History: dyspepsia Other Musculoskeletal History: closed nondisplaced fracture of greater trochanter-left femur with delayed healing. cervicalgia. arthralgia Psychiatric History: Reports: Anxiety Other Psychiatric History: smoker - Infectious Disease History Infectious Disease History: Reports: None - Past Surgical History GI Surgical History: Reports: Cholecystectomy Female Surgical History: Reports: Hysterectomy, Other (See Below) Other Female Surgeries/Procedures: breast biopsies Musculoskeletal Surgical History: Reports: Other (See Below) Other Musculoskeletal Surgeries/Procedures:: arthroscopic surgeries to shoulders Social & Family History - Family History Family Medical History: No Pertinent Family History Other HEENT Family History: sister with brain aneurysm Other Respiratory Family Hisory: sister with hx of lung CA, and liver CA ED ROS GENERAL - Review of Systems Review Of Systems: See Below Constitutional: Reports: Malaise, Weakness, Fatigue (baseline), Decreased Appetite, Weight Loss HEENT: Reports: No Symptoms. Denies: Rhinitis, Sinus Problem, Throat Pain, Throat Swelling Respiratory: Reports: No Symptoms. Denies: Shortness of Breath, Cough, Hemoptysis Cardiovascular: Reports: No Symptoms. Denies: Chest Pain, Blood Pressure Problem, Dyspnea on Exertion GI/Abdominal: Reports: Constipation (has not had a bowel movement in many days), Flatus (without problems), Other (pain under the left rib cage, left upper abdomen) : Denies: Frequency, Urgency Skin: Reports: No Symptoms Neurological: Reports: Confusion, Headache, Seizure, Syncope, Weakness ED EXAM, GI/ABD - Physical Exam Exam: See Below Exam Limited By: No Limitations General Appearance: Alert, WD/WN, No Apparent Distress, Anxious, Thin, Cachetic Eyes: Bilateral: EOMI Nose: Normal Inspection, Normal Mucosa Throat/Mouth: Normal Inspection, Normal Lips, Normal Oropharynx, Normal Voice Head: Atraumatic, Normocephalic Neck: Normal Inspection, Supple, Non-Tender, Full Range of Motion Respiratory/Chest: No Respiratory Distress, Lungs Clear, Normal Breath Sounds, Other (palaption of the left rib cage with minimal tenderness to palpation. no crepitus or subcutaneous air. No mass or hernia appreciated. ) Cardiovascular: Normal Peripheral Pulses, Regular Rate, Rhythm, No Murmur GI/Abdominal Exam: Normal Bowel Sounds, Soft, Tender (luq, no hernia, mass or swelling noted. no lesions or rashes). No: Rigid, Rebound Back Exam: Normal Inspection, Full Range of Motion. No: CVA Tenderness (L), CVA Tenderness (R) Extremities: Normal Inspection, Normal Range of Motion, Normal Capillary Refill Neurological: Alert, Oriented, Normal Cognition, No Motor/Sensory Deficits #1 Interpretation EKG Date: 02/22/21 Time: 14:46 Rhythm: NSR Rate (Beats/Min): [address] [place]: Normal P-Wave: Present QRS: Normal ST-T: Normal QT: Normal Course - Orders/Labs/Meds Orders: Active Orders 24 hr Category Date Time Status EKG Documentation Completion [RC] STAT Care 02/22/21 13:28 Active Labs: Laboratory Tests 02/22/21 02/22/21 Range/Units 13:40 13:40 WBC 8.1 (4.0-10.0) x10^3/uL RBC 5.01 (4.00-5.50) x10^6/uL Hgb 15.8 D (12.0-16.0) g/dL Hct 44.7 (33.0-47.0) % MCV 89.2 (78.0-93.0) fL MCH 31.5 (26.0-32.0) pg MCHC 35.3 (32.0-36.0) g/dL RDW Coeff of Tania 15.8 H (10.0-15.0) % Plt Count 270 (130-400) x10^3/uL Neut % (Auto) 80.0 (50.0-80.0) % Lymph % (Auto) 11.5 L (25.0-50.0) % [place] % (Auto) 7.4 (2.0-11.0) % Eos % (Auto) 0.4 (0.0-4.0) % Baso % (Auto) 0.7 (0.2-1.2) % Sodium 130 L (136-145) mmol/L Potassium 4.1 (3.5-5.1) mmol/L Chloride 94 L (98-107) mmol/L Carbon Dioxide 29 (21-32) mmol/L Anion Gap 11.1 (5-15) mmol/L BUN 10 (7-18) mg/dL Creatinine 0.5 L (0.55-1.02) mg/dL Est Cr Clr Drug Dosing TNP Estimated GFR (MDRD) > 60 Glucose 98 (70-99) mg/dL Calcium 8.8 (8.5-10.1) mg/dL Corrected Calcium 9.3 (8.5-10.1) mg/dL Total Bilirubin 0.6 (0.2-1.0) mg/dL AST 26 (15-37) U/L ALT 27 (14-59) U/L Alkaline Phosphatase 87 (46-116) U/L Troponin I High Sens 9 (<=51) ng/L Total Protein 6.9 (6.4-8.2) g/dL Albumin 3.4 (3.4-5.0) g/dL Globulin 3.5 Albumin/Globulin Ratio 0.97 Lipase 64 L (73-393) U/L - Radiology Interpretation Free Text/Narrative:: ct scan abdomen pelvis without contrast with swirling of the mesentery in the left side of the pelvis. concern for internal hernia. no evidence of bowel obstruction. repeat exam with IV and oral contrast is suggested. chest x-ray with mild to moderate right base atelectasis , have mildly increased and follow up is suggested. possible small right pleural effusion. interpreted by radiology - Re-Assessments/Exams Free Text/Narrative Re-Assessment/Exam: 02/22/21 14:04 offered pain medication, declined, no mass hernia or swelling appreciated on the patient. Had extensive recent medical evaluation with labs, mri , neurology 02/22/21 15:50 Discused the internal hernia with the patient and the at length. She states her pain is improved and better. Offered ct scan with IV and oral contrast. Offered surgical consultation. Wants to talk with her surgeon in [place]. normal white count, pain improved. advised to return to the ED for any continued pain, fever, vomiting, inability to have bowel movement with concern that the internal hernia will continue to kink and unkink. Chooses to go home. return as needed Departure - Departure Time of Disposition: 15:43 Disposition: Home, Self-Care 01 Condition: Good Clinical Impression: Internal hernia - Discharge Information *PRESCRIPTION DRUG MONITORING PROGRAM REVIEWED*: Not Applicable *COPY OF PRESCRIPTION DRUG MONITORING REPORT IN PATIENT MEGHANN: Not Applicable Instructions: Hernia, Adult Referrals: Kristy Wilson, [Primary Care Provider] - Additional Instructions: You have an internal hernia in the left abdomen. This is something that may need a CT scan with IV and oral contrast for further evaluation. THis can be done electively if you are not having pain. If you develop pain in the left abdomen that does not improve, vomiting and lack of ability to have a bowel movement, seek immediate medical care. This hernia will continue to twist in t he abdomen and cause intermittent obstructions of the bowel. If the pain is relieved, this is the bowel unkinking itself. Make appointment with your physician for evaluation, this sometimes need surgical repair. Emergent surgical consultation is needed for pain that is not improving, fever, vomiting./ Labs today are normal. Take a capful of Miralax dailiy to keep stools soft and minimize constipation. You were offered a scan today, but then your pain improved so have elected to work with your physician for continued cares. REturn to the ED if worsening with pain that is not relieved, inability to have a bowel movement, vomiting or fevers. - My Orders Last 24 Hours: My Active Orders 02/22/21 13:28 EKG Documentation Completion [RC] STAT - Assessment/Plan Last 24 Hours: My Active Orders 02/22/21 13:28 EKG Documentation Completion [RC] STAT
[2021-02-22 14:13] LABS: CHLORIDE,CL 94 mmol/L (98-107); SODIUM,NA 130 mmol/L (136-145)
[2021-02-22 14:16] LABS: ANION GAP 11.1 mmol/L (5-15)
--- NOTE | 2021-02-22 14:16 | CR ---
[id number] RAD/RAD Chest PA And Lateral EXAM: FRONTAL AND LATERAL CHEST INDICATION: CHEST PAIN. COMPARISON: February 16, 2021. DISCUSSION: Hyperinflation compatible with underlying chronic obstructive pulmonary disease. Right basilar atelectasis and/or infiltrates. Follow-up is suggested to ensure resolution and exclude other underlying pathology. Possible small right pleural effusion. Normal heart size. Moderate mid thoracic compression fracture of uncertain age. IMPRESSION: 1. Mild to moderate right base atelectasis and/or infiltrates. These changes have mildly increased and continued follow-up is suggested. 2. Possible small right effusion. Shady Polk MD 02/22/21 [id number] Thank you for allowing us to participate in the care of your patient.
--- NOTE | 2021-02-22 14:34 | CT ---
[id number] CT/CT Abdomen Pelvis WO IV Exam: CT Abdomen Pelvis WO IV Clinical Data: UPPER ABDOMINAL PAIN COMPARISON: NO PREVIOUS SIMILAR EXAM IS AVAILABLE FINDINGS: There is a swirling of the mesentery in the left side of the pelvis on image 93, series 2 This raises the question of an internal hernia There is no bowel obstruction There is no organomegaly The gallbladder has been removed The abdominal aorta is ectatic at the thoracoabdominal junction measuring 3.3 cm in diameter There is question of a left renal artery stent Lack of IV contrast and lack of oral contrast limits the study somewhat If symptoms persist, a repeat exam with both IV and oral contrast may be helpful Otherwise, the liver and spleen show no focal abnormalities There is evidence of centrilobular emphysema at the lung bases The kidneys, adrenals, and pancreas show no obvious abnormalities Confluent soft tissue density in the pelvis likely represents unopacified bowel The pelvis shows no mass or adenopathy The uterus and ovaries are not seen. The appendix also is not seen There is abundant fecal matter in the colon IMPRESSION: NO OBVIOUS ACUTE ABNORMALITY CONSIDER FOLLOW-UP CT ABDOMEN PELVIS W CONTRAST IF SYMPTOMS PERSIST QUESTION OF LEFT-SIDED MID PELVIC INTERNAL HERNIA Tyrese Ng MD 02/22/21 [id number] Thank you for allowing us to participate in the care of your patient.
[2021-02-22 17:45] VITALS: BP 152/91; PULSE 84
== END 2021-02-22 16:05 | disposition home or self-care (01) ==
LOC: VM.ED 12:53
DX: K46.9 Unspecified abdominal hernia without obstruction or gangrene (principal); I11.0 Hypertensive heart disease with heart failure; I50.9 Heart failure, unspecified; J44.9 Chronic obstructive pulmonary disease, unspecified; Z88.8 Allergy status to other drugs, medicaments and biological substances; Z88.1 Allergy status to other antibiotic agents; Z88.5 Allergy status to narcotic agent; Z88.0 Allergy status to penicillin; Z79.82 Long term (current) use of aspirin; Z79.899 Other long term (current) drug therapy
CPT/HCPCS: 36415; 71046; 74176; 80053; 83690; 84484; 85025; 93005; 93010; 99284; 99284-25

== ENCOUNTER 2021-03-08 15:57 | Emergency (ER) | payer MEDICARE, OTHER ==
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
[2021-03-08 16:56] VITALS: BP 145/78; PULSE 85
[2021-03-08] MEDS ORDERED: Acetaminophen/HYDROcodone 325-5 MG Tab PO ONE (18:18)
[2021-03-08] MEDS ORDERED: Methocarbamol 500 MG Tab PO ONE (18:18)
--- NOTE | 2021-03-08 18:20 | CR ---
[id number] RAD/RAD Lumbar Spine 2-3V EXAM: RAD Lumbar Spine 2-3V INDICATION: PAIN. COMPARISON: April 16, 2019. DISCUSSION: Mild convex left curvature centered in the mid lumbar spine. The vertebral bodies are otherwise normal in height and alignment. Mild disc degeneration L4-L5 and L5-S1 and mild bilateral facet arthropathy in the lower lumbar spine. There are couple of nonspecific round radiodensities overlying the right mid abdomen. IMPRESSION: 1. Mild lumbar spondylosis. Shady Polk MD 03/08/21 [id number] Thank you for allowing us to participate in the care of your patient.
--- NOTE | 2021-03-08 18:22 | CR ---
[id number] RAD/RAD Thoracic Spine 3V EXAM: RAD Thoracic Spine 3V INDICATION: PAIN. COMPARISON: None. DISCUSSION: A moderate mid thoracic compression fracture is age indeterminate, but unchanged relative to an February 22, 2021 chest radiograph. The vertebral bodies are otherwise normal in height and alignment. Osteopenia. Mild to moderate disc degeneration throughout the thoracic spine. IMPRESSION: 1. A moderate mid thoracic compression fracture is unchanged relative to February 22, 2021, but age indeterminate. 2. Mild to moderate thoracic spondylosis. Shady Polk MD 03/08/21 [id number] Thank you for allowing us to participate in the care of your patient.
== END 2021-03-08 18:30 | disposition home or self-care (01) ==
LOC: VM.ED 15:57
DX: M48.54XA Collapsed vertebra, not elsewhere classified, thoracic region, initial encounter for fracture (principal); I71.4 Abdominal aortic aneurysm, without rupture; I11.0 Hypertensive heart disease with heart failure; I50.9 Heart failure, unspecified; J44.9 Chronic obstructive pulmonary disease, unspecified; Z88.0 Allergy status to penicillin; Z88.5 Allergy status to narcotic agent; Z88.1 Allergy status to other antibiotic agents; Z88.7 Allergy status to serum and vaccine; Z88.8 Allergy status to other drugs, medicaments and biological substances; Z79.82 Long term (current) use of aspirin; Z79.899 Other long term (current) drug therapy
CPT/HCPCS: 72072; 72100; 99283-25

== ENCOUNTER 2021-09-19 09:35 | Emergency (ER) | payer MEDICARE, OTHER ==
[2021-09-19 10:51] LABS: CHLORIDE,CL 98 mmol/L (98-107); SODIUM,NA 134 mmol/L (136-145)
[2021-09-19 10:52] LABS: ANION GAP 9.7 mmol/L (5-15)
[2021-09-19 11:33] VITALS: BP 142/80; PULSE 82
[2021-09-19] MEDS ORDERED: HYDROmorphone 0.5 MG/0.5 ML Syringe IVPUSH ONE (11:45)
== END 2021-09-19 11:55 | disposition short-term general hospital (02) ==
LOC: VM.ED 10:16
DX: I11.0 Hypertensive heart disease with heart failure (principal); I50.9 Heart failure, unspecified; J44.9 Chronic obstructive pulmonary disease, unspecified; Z88.0 Allergy status to penicillin; Z88.1 Allergy status to other antibiotic agents; Z88.7 Allergy status to serum and vaccine; Z88.8 Allergy status to other drugs, medicaments and biological substances; Z72.0 Tobacco use; Z79.82 Long term (current) use of aspirin; Z79.899 Other long term (current) drug therapy
CPT/HCPCS: 36415; 71046; 73610-RT; 80053; 83735; 83880; 85025; 85379; 86140; 96374; 99284; 99284-25; J1170